=== PATIENT | female | born 1995 | race Caucasian/White ===

== ENCOUNTER → 2020-07-30 | Outpatient (CLI) | payer OTHER ==
[~2020-07-30] MED LIST: PRENTAB53 PO; VENTAER INH
[2020-07-30 11:10] LABS: HEMATOCRIT 39.1 % (36.0-47.0); HEMOGLOBIN 13.4 g/dl (12.0-15.5); MEAN CORPUSCULAR HEMOGLOBIN 30.5 pg (27.0-33.0); MEAN CORPUSCULAR HGB CONC 34.3 g/dl (32.0-36.5); MEAN CORPUSCULAR VOLUME 89.1 fl (80.0-96.0); PLATELET COUNT, AUTOMATED 256 10^3/uL (150-450); RED BLOOD COUNT 4.39 10^6/uL (4.00-5.40); WHITE BLOOD COUNT 5.6 10^3/uL (4.0-10.0)
[2020-07-30 11:29] LABS: ALBUMIN 3.7 GM/DL (3.2-5.2); ALT/SGPT 18 U/L (12-78); BILIRUBIN,TOTAL 0.6 MG/DL (0.2-1.0); BLOOD UREA NITROGEN 15 MG/DL (7-18); CALCIUM LEVEL 8.7 MG/DL (8.5-10.1); CARBON DIOXIDE LEVEL 26 MEQ/L (21-32); CHLORIDE LEVEL 106 MEQ/L (98-107); CREATININE FOR GFR 0.64 MG/DL (0.55-1.30); GLOMERULAR FILTRATION RATE > 60.0 (>60); GLUCOSE, FASTING 88 MG/DL (70-100); POTASSIUM SERUM 4.2 MEQ/L (3.5-5.1); SODIUM LEVEL 138 MEQ/L (136-145); TOTAL PROTEIN 6.8 GM/DL (6.4-8.2)
== END ==
LOC: M WUC 08:18
PROVIDERS: ATTEND Student in an Organized Health Care Education/Training Program
DX: Z32.01 Encounter for pregnancy test, result positive (principal)
CPT/HCPCS: 36415; 80053; 84443; 85027; G0463

== ENCOUNTER → 2020-08-02 | Outpatient (CLI) | payer OTHER, SELFPAY | LOC: M LABSMTC 12:11 | PROVIDERS: ATTEND Pediatrics | DX: Z20.828 Contact with and (suspected) exposure to other viral communicable diseases (principal) ==

== ENCOUNTER 2020-08-03 14:57 | Emergency (ER) | payer OTHER, SELFPAY ==
[~2020-08-03] VITALS: Ht 160 cm; Wt 71.5 kg
[2020-08-03] MEDS ORDERED: PRENTAB53 PO (15:07)
[2020-08-03] MEDS ORDERED: diphenhydrAMINE 50MG/ML VIAL (J1200) IV STA (15:38)
[2020-08-03] MEDS ORDERED: METOCLOPRAMIDE INJ 10MG/2ML VIAL (J2765 PER 1) IV ONE (15:45)
[2020-08-03] MEDS ORDERED: NS 1,000 ML IV ONE (15:45)
[2020-08-03] MEDS ORDERED: ACETAMINOPHEN 500 MG TAB PO ONE (15:45)
[2020-08-03 16:10] LABS: BASO % 0.2 % (0.0-1.0); EOS # 0.1 10^3/uL (0.0-0.5); EOS % 1.1 % (0.0-3.0); HEMATOCRIT 40.1 % (36.0-47.0); HEMOGLOBIN 13.5 g/dl (12.0-15.5); LYMPH % 31.4 % (24.0-44.0); MEAN CORPUSCULAR HEMOGLOBIN 29.7 pg (27.0-33.0); MEAN CORPUSCULAR HGB CONC 33.7 g/dl (32.0-36.5); MEAN CORPUSCULAR VOLUME 88.3 fl (80.0-96.0); MONO # 0.6 10^3/uL (0.0-0.8); MONO % 8.7 % (0.0-5.0); NEUTROPHILS # 3.7 10^3/uL (1.5-8.5); NEUTROPHILS % 58.3 % (36.0-66.0); PLATELET COUNT, AUTOMATED 260 10^3/uL (150-450); RED BLOOD COUNT 4.54 10^6/uL (4.00-5.40); WHITE BLOOD COUNT 6.4 10^3/uL (4.0-10.0)
[2020-08-03 16:23] LABS: INR 0.92; PROTHROMBIN TIME 12.5 SECONDS (12.5-14.3)
[2020-08-03 16:26] LABS: D-DIMER QUANT 346.85 ng/ml (<500)
[2020-08-03 16:48] LABS: ALBUMIN 3.7 GM/DL (3.2-5.2); ALT/SGPT 29 U/L (12-78); BILIRUBIN,DIRECT 0.1 MG/DL (0.0-0.2); BILIRUBIN,TOTAL 0.3 MG/DL (0.2-1.0); BLOOD UREA NITROGEN 10 MG/DL (7-18); CALCIUM LEVEL 8.8 MG/DL (8.5-10.1); CARBON DIOXIDE LEVEL 27 MEQ/L (21-32); CHLORIDE LEVEL 106 MEQ/L (98-107); CK-MB VALUE MASS < 1.0 NG/ML (<3.6); CPK CREATINE PHOSPHOKINASE 80 U/L (26-192); CREATININE FOR GFR 0.69 MG/DL (0.55-1.30); GLOMERULAR FILTRATION RATE > 60.0 (>60); GLUCOSE, FASTING 85 MG/DL (70-100); HCG, SERUM QUANTITATIVE 9624 MIU/ML; MB/CK RELATIVE INDEX 1.25 (< OR =4); NT-PRO BNP 7 PG/ML (<125); SODIUM LEVEL 137 MEQ/L (136-145); THYROID STIMULATING HORMONE 0.852 uIU/ML (0.358-3.740); THYROXINE (T4) 8.8 UG/DL (4.5-12.0); TOTAL PROTEIN 7.2 GM/DL (6.4-8.2); TROPONIN I < 0.02 NG/ML (< 0.10)
[2020-08-03] MEDS ORDERED: VENTAER INH (17:38)
[2020-08-03 17:52] VITALS: BP 122/69
== END 2020-08-03 17:55 | disposition home or self-care (01) ==
LOC: M ED 14:57
DX: O99.511 Diseases of the respiratory system complicating pregnancy, first trimester (principal); Z3A.01 Less than 8 weeks gestation of pregnancy; Z79.899 Other long term (current) drug therapy
CPT/HCPCS: 80048; 80076; 82550; 82553; 83880; 84436; 84443; 84484; 84702; 85025; 85379; 85610; 96374; 96375; 99284; J1200; J2765

== ENCOUNTER → 2020-08-30 | Outpatient (REF) | payer OTHER ==
[2020-08-30 18:46] LABS: HEMATOCRIT 39.9 % (36.0-47.0); HEMOGLOBIN 13.6 g/dl (12.0-15.5); MEAN CORPUSCULAR HEMOGLOBIN 30.6 pg (27.0-33.0); MEAN CORPUSCULAR HGB CONC 34.1 g/dl (32.0-36.5); MEAN CORPUSCULAR VOLUME 89.7 fl (80.0-96.0); PLATELET COUNT, AUTOMATED 267 10^3/uL (150-450); RED BLOOD COUNT 4.45 10^6/uL (4.00-5.40); WHITE BLOOD COUNT 7.2 10^3/uL (4.0-10.0)
[2020-08-30 19:35] LABS: HEPATITIS C VIRUS ABY INDEX < 0.0 INDEX (<0.8); HIV 1&2 SCREEN CENTAUR NEGATIVE (NEGATIVE)
[2020-08-30 20:18] LABS: CHLAMYDIA DNA AMPLIFICATION NEGATIVE (NEGATIVE); GC DNA AMPLIFICATION NEGATIVE (NEGATIVE)
== END ==
LOC: M PLALAB 15:17
PROVIDERS: ATTEND Advanced Practice Midwife
DX: Z34.81 Encounter for supervision of other normal pregnancy, first trimester (principal)
CPT/HCPCS: 36415; 85027; 86762; 86780; 86803; 86850; 86900; 86901; 87086; 87340; 87389; 87491; 87591; G0463

== ENCOUNTER → 2020-09-04 | Outpatient (CLI) | payer OTHER | LOC: M LAB 11:25 | PROVIDERS: ATTEND Advanced Practice Midwife | DX: Z34.81 Encounter for supervision of other normal pregnancy, first trimester (principal) ==

== ENCOUNTER 2020-09-07 15:27 | Emergency (ER) | payer OTHER ==
[~2020-09-07] VITALS: Ht 160 cm; Wt 75.8 kg
[2020-09-07 16:49] LABS: BASO % 0.2 % (0.0-1.0); EOS # 0.1 10^3/uL (0.0-0.5); EOS % 1.3 % (0.0-3.0); HEMATOCRIT 36.2 % (36.0-47.0); HEMOGLOBIN 12.8 g/dl (12.0-15.5); LYMPH # 1.8 10^3/uL (1.5-5.0); LYMPH % 29.9 % (24.0-44.0); MEAN CORPUSCULAR HEMOGLOBIN 30.5 pg (27.0-33.0); MEAN CORPUSCULAR HGB CONC 35.4 g/dl (32.0-36.5); MEAN CORPUSCULAR VOLUME 86.4 fl (80.0-96.0); MONO # 0.5 10^3/uL (0.0-0.8); MONO % 7.4 % (0.0-5.0); NEUTROPHILS # 3.7 10^3/uL (1.5-8.5); NEUTROPHILS % 60.7 % (36.0-66.0); PLATELET COUNT, AUTOMATED 248 10^3/uL (150-450); RED BLOOD COUNT 4.19 10^6/uL (4.00-5.40); WHITE BLOOD COUNT 6.1 10^3/uL (4.0-10.0)
[2020-09-07 17:03] LABS: INR 0.89; PROTHROMBIN TIME 12.2 SECONDS (12.5-14.3)
--- NOTE | 2020-09-07 17:03 | REP ---
INDICATION: cramping. COMPARISON: No comparison study. TECHNIQUE: Transabdominal scanning is performed. FINDINGS: Transabdominal scanning demonstrates a single living intrauterine gestation in a free-floating lie. The crown-rump length of the embryonic pole is 36 mm. This corresponds with a gestational age estimate of 10 weeks 3 days. heart rate is recorded at 161 beats per minute. No extra uterine abnormality is observed. IMPRESSION: Viable single intrauterine gestation at 10 weeks 3 days by crown-rump length. DAMIAN by sonography April 02, 2021. No complication is identified. <Electronically signed by Gabriele Perez > 09/07/20 [id number]
[2020-09-07 17:04] LABS: PARTIAL THROMBOPLASTIN TIME 31.7 SECONDS (24.2-38.5)
[2020-09-07 17:07] LABS: D-DIMER QUANT 495.64 ng/ml (<500)
[2020-09-07 17:38] LABS: ALBUMIN 3.4 GM/DL (3.2-5.2); ALT/SGPT 16 U/L (12-78); BILIRUBIN,DIRECT 0.1 MG/DL (0.0-0.2); BILIRUBIN,TOTAL 0.3 MG/DL (0.2-1.0); CK-MB VALUE MASS < 1.0 NG/ML (<3.6); CPK CREATINE PHOSPHOKINASE 70 U/L (26-192); FREE T4 0.98 NG/DL (0.76-1.46); HCG, SERUM QUANTITATIVE 62807 MIU/ML; LIPASE 93 U/L (73-393); MB/CK RELATIVE INDEX 1.43 (< OR =4); THYROID STIMULATING HORMONE 0.578 uIU/ML (0.358-3.740); TOTAL PROTEIN 6.8 GM/DL (6.4-8.2); TROPONIN I < 0.02 NG/ML (< 0.10)
[2020-09-07 18:08] VITALS: BP 123/61
--- NOTE | 2020-09-08 14:43 | ECGEPIP ---
[facility] - ED Test Date: 2020-09-07 Pat Name: FABRIZIO JOHNSON Department: Room: - Gender: Female Distribution Spec: kanu : 1995 Requested By: ARACELI KAMINSKI PA-C Order Number: [id number] Reading MD: Alyse Delcid Measurements Intervals [place] Rate: 74 P: 27 IL: 126 QRS: 53 QRSD: 89 T: 16 QT: 364 QTc: 404 Interpretive Statements SINUS RHYTHM WITH SINUS ARRHYTHMIA No prior Electronically Signed on 09-08-2020 14:43:27 EST by Alyse Delcid
== END 2020-09-07 18:15 | disposition home or self-care (01) ==
LOC: M ED 15:27
DX: O99.411 Diseases of the circulatory system complicating pregnancy, first trimester (principal); O26.891 Other specified pregnancy related conditions, first trimester; Z3A.10 10 weeks gestation of pregnancy; Z79.899 Other long term (current) drug therapy

== ENCOUNTER → 2020-10-07 | Outpatient (REF) | LOC: M LABSMTC 10:53 | PROVIDERS: ATTEND Pediatrics | DX: Z11.52 Encounter for screening for COVID-19 (principal) ==

== ENCOUNTER → 2020-10-15 | Outpatient (REF) | LOC: M LABSMTC 13:31 | PROVIDERS: ATTEND Pediatrics | DX: Z11.52 Encounter for screening for COVID-19 (principal) ==

== ENCOUNTER 2020-11-16 12:24 | Emergency (ER) | payer OTHER ==
[~2020-11-16] VITALS: Ht 160 cm; Wt 83.4 kg
[2020-11-16] MEDS ORDERED: ACETAMINOPHEN TAB 650MG DOSE (2X325MG) PO ONE (12:55)
[2020-11-16 13:18] LABS: BASO % 0.1 % (0.0-1.0); EOS # 0.1 10^3/uL (0.0-0.5); EOS % 0.9 % (0.0-3.0); HEMATOCRIT 35.1 % (36.0-47.0); HEMOGLOBIN 12.1 g/dl (12.0-15.5); LYMPH # 1.6 10^3/uL (1.5-5.0); LYMPH % 20.6 % (24.0-44.0); MEAN CORPUSCULAR HEMOGLOBIN 30.9 pg (27.0-33.0); MEAN CORPUSCULAR HGB CONC 34.5 g/dl (32.0-36.5); MEAN CORPUSCULAR VOLUME 89.5 fl (80.0-96.0); MONO # 0.7 10^3/uL (0.0-0.8); MONO % 8.7 % (2.0-8.0); NEUTROPHILS # 5.2 10^3/uL (1.5-8.5); NEUTROPHILS % 68.5 % (36.0-66.0); PLATELET COUNT, AUTOMATED 247 10^3/uL (150-450); RED BLOOD COUNT 3.92 10^6/uL (4.00-5.40); WHITE BLOOD COUNT 7.6 10^3/uL (4.0-10.0)
[2020-11-16 13:49] LABS: MAGNESIUM LEVEL 2.1 MG/DL (1.8-2.4); THYROID STIMULATING HORMONE 1.03 uIU/ML (0.358-3.740); THYROXINE (T4) 14.5 UG/DL (4.5-12.0)
[2020-11-16 14:14] LABS: APPEARANCE, URINE CLEAR (CLEAR); BACTERIA, URINE AUTO 2+ (NEGATIVE); BILIRUBIN, URINE AUTO NEGATIVE (NEGATIVE); BLOOD, URINE BLOOD NEGATIVE (NEGATIVE); COLOR, URINE STRAW (YELLOW); GLUCOSE, URINE (UA) AUTO NEGATIVE (NEGATIVE); KETONE, URINE AUTO NEGATIVE (NEGATIVE); LEUKOCYTE ESTERASE, URINE AUTO NEGATIVE (NEGATIVE); NITRITE, URINE AUTO NEGATIVE (NEGATIVE); PROTEIN, URINE AUTO NEGATIVE (NEGATIVE); RBC, URINE AUTO 1 /HPF (0-3); SPECIFIC GRAVITY URINE AUTO 1.004 (1.002-1.035); SQUAMOUS EPITHELIAL CELL UR AU 1 /HPF (0-6); UROBILINOGEN, URINE AUTO 0.2 mg/dL (0.0-2.0); WBC, URINE AUTO 2 /HPF (0-3)
--- NOTE | 2020-11-16 14:15 | REP ---
INDICATION: ?previa -low lying placenta - need cervical length too pleas. COMPARISON: 09/07/2020. TECHNIQUE: Real-time sonographic evaluation of the gravid uterus performed. Transabdominal and endovaginal technique is utilized. FINDINGS: Estimated gestational age is20 weeks 3 days, EDC 04/02/2021. Today's measurements indicate appropriate growth. Presentation: Cephalic Placenta anterior, grade 1, without evidence of placenta previa. heart rate is recorded at 146 beats per minute. Amniotic fluid is subjectively normal. Closed cervical length is measured at 3.9 cm. Biometry chart: BPD: 52 mm, 21 weeks 5 days, with 85th percentile. HC: 189 mm, 21 weeks 2 days, 75th percentile AC: 164 mm, 21 weeks 3 days, 72nd percentile Femur length: 35 mm, 521 weeks 1 days, 69th percentile HC to AC ratio: 1.16, normal range 1.06-1.24. Estimated weight: 415g, 90th percentile. anatomy: Cranium: Grossly normal Lateral Ventricles/Choroid Plexus: Grossly normal Posterior Fossa/Cerebellum: Grossly normal Nose/lips/profile: Grossly normal Four chamber heart: Not well seen due to position. Right ventricular outflow tract: Not well seen due to position. Left ventricular outflow tract: Not well seen due to position. Left-sided stomach: Grossly normal Kidneys: Grossly normal Bladder: Grossly normal Cord Insertion: Grossly normal 3 vessel cord: Grossly normal Spine: Not well seen due to position. IMPRESSION: Viable single intrauterine gestation as above. <Electronically signed by Jorden Montenegro > 11/16/20 [id number]
[2020-11-16] MEDS ORDERED: NITR1CAP11 PO (14:47)
[2020-11-16 15:03] VITALS: BP 142/67
--- NOTE | 2020-11-16 18:00 | ECGEPIP ---
[facility] - ED Test Date: 2020-11-16 Pat Name: FABRIZIO JOHNSON Department: Room: - Gender: Female Telephone Lineman: Luda MEREDITH : 1995 Requested By: Alyse Delcid Order Number: [id number] Reading MD: Alyse Delcid Measurements Intervals Tina Rate: 89 P: 26 NV: 128 QRS: 34 QRSD: 76 T: 15 QT: 344 QTc: 418 Interpretive Statements Normal sinus rhythm increased rate 09/07/20 Electronically Signed on 11-16-2020 18:00:27 EDT by Alyse Delcid
== END 2020-11-16 15:05 | disposition home or self-care (01) ==
LOC: M ED 12:24
DX: O99.891 Other specified diseases and conditions complicating pregnancy (principal); R00.2 Palpitations; O23.92 Unspecified genitourinary tract infection in pregnancy, second trimester; Z3A.21 21 weeks gestation of pregnancy

== ENCOUNTER → 2020-11-23 | Outpatient (CLI) | payer OTHER ==
[~2020-11-23] MED LIST changes: +CETI10CA2 PO; +NITR1CAP11 PO
--- NOTE | 2020-11-25 13:15 | REP ---
INDICATION: ANATOMY,PLACENTAL LOCATION,VAG BLEEDING. COMPARISON: 11/16/2020. TECHNIQUE: Real-time sonographic evaluation of the gravid uterus performed. Study is submitted to me for interpretation 11/25/2020 for reasons unknown to me. FINDINGS: Estimated gestational age is21 weeks 3 days, EDC 04/02/2021. Today's measurements indicate appropriate growth. Presentation: Cephalic Placenta anterior, grade 1, without evidence of placenta previa. heart rate is recorded at 152 beats per minute. Amniotic fluid is subjectively normal. Closed cervical length is measured at 3.1 cm. Biometry chart: BPD: 54 mm, 22 weeks 3 days, 78th percentile. HC: 199 mm, 22 weeks 0 days, 69th percentile AC: 183 mm, 23 weeks 1 days, 87th percentile Femur length: 39 mm, 22 weeks 2 days, 74th percentile HC to AC ratio: 1.09, normal range 1.05-1.24. Estimated weight: 525g, > 97th percentile. anatomy: Cranium: Grossly normal Lateral Ventricles/Choroid Plexus: There is no hydrocephalus, possible subcentimeter cystic area in the right choroid plexus. Posterior Fossa/Cerebellum: Grossly normal Nose/lips/profile: Grossly normal Four chamber heart: Grossly normal Right ventricular outflow tract: Grossly normal Left ventricular outflow tract: Grossly normal Left-sided stomach: Grossly normal Kidneys: Grossly normal Bladder: Grossly normal Cord Insertion: Grossly normal 3 vessel cord: Grossly normal Spine: Grossly normal IMPRESSION: Viable single intrauterine gestation as above. Possible subcentimeter cystic area in the right choroid plexus. <Electronically signed by Jorden Montenegro > 11/25/20 1311
== END ==
LOC: M WHC 12:42
PROVIDERS: ATTEND Advanced Practice Midwife
DX: O26.852 Spotting complicating pregnancy, second trimester (principal); Z3A.21 21 weeks gestation of pregnancy

== ENCOUNTER 2020-11-29 09:35 | Outpatient (CLI) | payer OTHER ==
[~2020-11-29] VITALS: Ht 160 cm; Wt 85.1 kg
[~2020-11-29 09:35] MED LIST changes: +ANUSOL HC CREAM 30GM TOP SCH; -CETI10CA2 PO; +HYDROCORTISONE 1% CREAM 30 GM TOP SCH
[2020-11-29 10:25] VITALS: BP 110/60
[2020-11-29] MEDS ORDERED: diphenhydrAMINE 50MG/ML VIAL (J1200) IV ONE (10:55)
--- NOTE | 2020-11-29 10:57 | IPNPDOC ---
Text Note Date of Service The patient was seen on 11/29/20. NOTE Subjective: Rainer is a 25-year-old female who is a at 22.2 weeks gestation with an DAMIAN of 04/02/21. Her has been uncomplicated. She presents to L&D with complaints of a rash on her arms over the last 3 weeks that started to itch over the weekend more than it has in the past. She took Benadryl 50 mg yesterday without relief. She reports active movement, denies co ntractions, denies vaginal bleeding or leaking of fluid. MHx: history of abnormal pap smear, fibroids SHx: wisdom teeth and attempt to remove fibroids (unsuccessful) FHx: mother with endometriosis and fibroids, uncle colon cancer, maternal aunt with lupus and another aunt with a blood clot that passed way at 34 from it Social Hx: US[employer] Hx: induced 2013 Objective: VS and labs: see below FHR: 150 [place]: no contractions General: No apparent distress. Respiratory: Regular rate and rhythm without use of accessory muscles Abdomen: gravid with fundus slightly above umbilicus. Skin: Few, spread papules on forearms and top of hands. Some papules are slightly raised and erythremic but all are small and round (less than 0.5 cm), excoriation noted over a few papules. No crusting or scaling noted. No noted fashion of distribution. Assessment: IUP at 22.2 weeks gestation, pruritic papules Plan: Saline lock started. Labs obtained. IV Benadryl ordered and Zyrtec PO ordered. Reviewed lab findings with patient. Reviewed treatment plan. Script sent for Zyrtec PO daily until itching and papules are cleared up. PO Benadryl 50 mg BID if needed for itching. Topical hydrocortisone also given. Patient has an appointment this Sunday in our office. Discharged to home with precautions. VS,Fishbone, I+O VS, Fishbone, I+O Vital Signs Date Time Temp Pulse Resp B/P (MAP) Pulse Ox O2 Delivery O2 Flow Rate FiO2 11/29/20 10:25 98.1 95 18 110/60 (77) Room Air Item Value Date Time White Blood Count 8.4 10^3/uL 11/29/20 1054 Red Blood Count 3.82 10^6/uL L 11/29/20 1054 Hemoglobin 11.8 g/dl L 11/29/20 1054 Hematocrit 34.7 % L 11/29/20 1054 Mean Corpuscular Volume 90.8 fl 11/29/20 1054 Mean Corpuscular Hemoglobin 30.9 pg 11/29/20 1054 Mean Corpuscular Hemoglobin Concent 34.0 g/dl 11/29/20 1054 Red Cell Distribution Width 12.7 % 11/29/20 1054 Platelet Count 245 10^3/uL 11/29/20 1054 Immature Granulocyte % (Auto) 1.0 % 11/29/20 1054 Neutrophils (%) (Auto) 73.4 % H 11/29/20 1054 Lymphocytes (%) (Auto) 18.2 % L 11/29/20 1054 Monocytes (%) (Auto) 6.5 % 11/29/20 1054 Eosinophils (%) (Auto) 0.7 % 11/29/20 1054 Basophils (%) (Auto) 0.2 % 11/29/20 1054 Neutrophils # (Auto) 6.2 10^3/uL 11/29/20 1054 Lymphocytes # (Auto) 1.5 10^3/uL 11/29/20 1054 Monocytes # (Auto) 0.6 10^3/uL 11/29/20 1054 Eosinophils # (Auto) 0.1 10^3/uL 11/29/20 1054 Basophils # (Auto) 0.0 10^3/uL 11/29/20 1054 Nucleated Red Blood Cells % (auto) 0.0 % 11/29/20 1054 Item Value Date Time Erythrocyte Sedimentation Rate 52 mm/hr H 11/29/20 1054 Item Value Date Time Sodium Level 139 MEQ/L 11/29/20 1054 Potassium Level 3.8 MEQ/L 11/29/20 1054 Chloride Level 109 MEQ/L H 11/29/20 1054 Carbon Dioxide Level 20 MEQ/L L 11/29/20 1054 Anion Gap 10 MEQ/L 11/29/20 1054 Blood Urea Nitrogen 9 MG/DL 11/29/20 1054 Creatinine 0.48 MG/DL L 11/29/20 1054 Glomerular Filtration Rate > 60.0 11/29/20 1054 Fasting Glucose 97 MG/DL 11/29/20 1054 Calcium Level 8.3 MG/DL L 11/29/20 1054 Total Bilirubin 0.3 MG/DL 11/29/20 1054 Aspartate Amino Transf (AST/SGOT) 26 U/L 11/29/20 1054 Alanine Aminotransferase (ALT/SGPT) 24 U/L 11/29/20 1054 Alkaline Phosphatase 70 U/L 11/29/20 1054 Total Protein 6.2 GM/DL L 11/29/20 1054 Albumin 2.7 GM/DL L 11/29/20 1054 Albumin/Globulin Ratio 0.8 L 11/29/20 1054 ELAINE HERNÁNDEZ CNM Nov 29, 2020 10:57
[2020-11-29 11:14] LABS: APPEARANCE, URINE CLEAR (CLEAR); BACTERIA, URINE AUTO 1+ (NEGATIVE); BILIRUBIN, URINE AUTO NEGATIVE (NEGATIVE); BLOOD, URINE BLOOD NEGATIVE (NEGATIVE); COLOR, URINE YELLOW (YELLOW); GLUCOSE, URINE (UA) AUTO NEGATIVE (NEGATIVE); KETONE, URINE AUTO NEGATIVE (NEGATIVE); LEUKOCYTE ESTERASE, URINE AUTO NEGATIVE (NEGATIVE); MUCUS, URINE SMALL (NEGATIVE); NITRITE, URINE AUTO NEGATIVE (NEGATIVE); PROTEIN, URINE AUTO NEGATIVE (NEGATIVE); RBC, URINE AUTO 2 /HPF (0-3); SPECIFIC GRAVITY URINE AUTO 1.018 (1.002-1.035); SQUAMOUS EPITHELIAL CELL UR AU 0 /HPF (0-6); UROBILINOGEN, URINE AUTO 0.2 mg/dL (0.0-2.0); WBC, URINE AUTO 2 /HPF (0-3)
[2020-11-29 11:57] LABS: ALBUMIN 2.7 GM/DL (3.2-5.2); ALT/SGPT 24 U/L (12-78); BILIRUBIN,TOTAL 0.3 MG/DL (0.2-1.0); BLOOD UREA NITROGEN 9 MG/DL (7-18); CALCIUM LEVEL 8.3 MG/DL (8.5-10.1); CARBON DIOXIDE LEVEL 20 MEQ/L (21-32); CHLORIDE LEVEL 109 MEQ/L (98-107); CREATININE FOR GFR 0.48 MG/DL (0.55-1.30); GLOMERULAR FILTRATION RATE > 60.0 (>60); GLUCOSE, FASTING 97 MG/DL (70-100); POTASSIUM SERUM 3.8 MEQ/L (3.5-5.1); SODIUM LEVEL 139 MEQ/L (136-145); TOTAL PROTEIN 6.2 GM/DL (6.4-8.2)
[2020-11-29] MEDS ORDERED: CETIRIZINE (ZyrTEC) 10 MG TAB PO ONE (12:00)
[2020-11-29] MEDS ORDERED: CETI10CA2 PO (13:20)
[2020-11-29 13:27] LABS: BASO % 0.2 % (0.0-1.0); EOS # 0.1 10^3/uL (0.0-0.5); EOS % 0.7 % (0.0-3.0); HEMATOCRIT 34.7 % (36.0-47.0); HEMOGLOBIN 11.8 g/dl (12.0-15.5); LYMPH # 1.5 10^3/uL (1.5-5.0); LYMPH % 18.2 % (24.0-44.0); MEAN CORPUSCULAR HEMOGLOBIN 30.9 pg (27.0-33.0); MEAN CORPUSCULAR VOLUME 90.8 fl (80.0-96.0); MONO # 0.6 10^3/uL (0.0-0.8); MONO % 6.5 % (2.0-8.0); NEUTROPHILS # 6.2 10^3/uL (1.5-8.5); NEUTROPHILS % 73.4 % (36.0-66.0); PLATELET COUNT, AUTOMATED 245 10^3/uL (150-450); RED BLOOD COUNT 3.82 10^6/uL (4.00-5.40); WHITE BLOOD COUNT 8.4 10^3/uL (4.0-10.0)
== END 2020-11-29 14:15 | disposition home or self-care (01) ==
LOC: M LDO 09:35
PROVIDERS: ATTEND Advanced Practice Midwife
DX: O26.86 Pruritic urticarial papules and plaques of pregnancy (PUPPP) (principal); Z3A.22 22 weeks gestation of pregnancy
CPT/HCPCS: 80053; 81001; 85025; 85652; 87086; 96374; G0378; G0463; J1200

== ENCOUNTER 2021-01-02 18:50 | Outpatient (CLI) | payer OTHER ==
[~2021-01-02] VITALS: Ht 160 cm; Wt 88.4 kg
[~2021-01-02 18:50] MED LIST changes: -ANUSOL HC CREAM 30GM TOP SCH; +CETI10CA2 PO; -HYDROCORTISONE 1% CREAM 30 GM TOP SCH
[2021-01-02 19:07] VITALS: BP 122/59
[2021-01-02] MEDS ORDERED: ACET500P3 PO (19:22)
[2021-01-02 19:51] VITALS: BP 114/63
[2021-01-02 20:01] VITALS: BP 120/61
[2021-01-02 20:15] LABS: APPEARANCE, URINE CLEAR (CLEAR); BACTERIA, URINE AUTO 1+ (NEGATIVE); BILIRUBIN, URINE AUTO NEGATIVE (NEGATIVE); BLOOD, URINE BLOOD NEGATIVE (NEGATIVE); COLOR, URINE STRAW (YELLOW); GLUCOSE, URINE (UA) AUTO 1+ mg/dL (NEGATIVE); KETONE, URINE AUTO NEGATIVE (NEGATIVE); LEUKOCYTE ESTERASE, URINE AUTO NEGATIVE (NEGATIVE); NITRITE, URINE AUTO NEGATIVE (NEGATIVE); PROTEIN, URINE AUTO NEGATIVE (NEGATIVE); RBC, URINE AUTO 0 /HPF (0-3); SPECIFIC GRAVITY URINE AUTO 1.005 (1.002-1.035); SQUAMOUS EPITHELIAL CELL UR AU 0 /HPF (0-6); UROBILINOGEN, URINE AUTO 0.2 mg/dL (0.0-2.0); WBC, URINE AUTO 2 /HPF (0-3)
[2021-01-02 20:35] LABS: CREATININE,RANDOM URINE 30.9 MG/DL; TOTAL PROTEIN,RANDOM URINE 5.5 MG/DL (0.0-12.0)
[2021-01-02 20:49] LABS: HEMATOCRIT 34.8 % (36.0-47.0); HEMOGLOBIN 11.7 g/dl (12.0-15.5); MEAN CORPUSCULAR HEMOGLOBIN 30.4 pg (27.0-33.0); MEAN CORPUSCULAR HGB CONC 33.6 g/dl (32.0-36.5); MEAN CORPUSCULAR VOLUME 90.4 fl (80.0-96.0); PLATELET COUNT, AUTOMATED 249 10^3/uL (150-450); RED BLOOD COUNT 3.85 10^6/uL (4.00-5.40); WHITE BLOOD COUNT 9.6 10^3/uL (4.0-10.0)
[2021-01-02 21:13] LABS: ALT/SGPT 18 U/L (12-78); BILIRUBIN,TOTAL 0.2 MG/DL (0.2-1.0); CREATININE FOR GFR 0.48 MG/DL (0.55-1.30); GLOMERULAR FILTRATION RATE > 60.0 (>60); LDH LACTATE DEHYDROGENASE 165 U/L (84-246); URIC ACID 2.6 MG/DL (2.6-6.0)
--- NOTE | 2021-01-02 21:20 | IPNPDOC ---
Text Note Date of Service The patient was seen on 01/02/21. NOTE S: 25 yo female at 27 1/7 weeks gestation presents with right upper abdominal pain that radiates laterally. She also has GARCIA's. She is worried because her mother had preeclampsia. She has pain in the back of both legs. She is moving out of town soon. O: TI=439/70 NAD HEENT: NCAT Lungs: CTA CVS: RRR Abd: NT, gravid FHT: Cat. I toco: none ext: NT, tr edema A/P 25 yo at 27 1/7 weeks with no evidence of preeclampsia, costochondritis on right. Tylenol for GARCIA Discussed findings with patient could get diabetes test done prior to move VS,Ashlyn, I+O VS, Javye, I+O Vital Signs Date Time Temp Pulse Resp B/P (MAP) Pulse Ox O2 Delivery O2 Flow Rate FiO2 01/02/21 20:01 103 16 120/61 (80) 01/02/21 19:07 98.3 98 Room Air JACINDA RUBI MD January 02, 2021 20:35
== END 2021-01-02 21:25 | disposition home or self-care (01) ==
LOC: M LDO 18:50
PROVIDERS: ATTEND Specialist
DX: O26.892 Other specified pregnancy related conditions, second trimester (principal); Z3A.27 27 weeks gestation of pregnancy; R10.11 Right upper quadrant pain; M79.604 Pain in right leg; M79.605 Pain in left leg; M94.0 Chondrocostal junction syndrome [Tietze]; R51.9 Headache, unspecified
CPT/HCPCS: 36415; 81001; 82247; 82565; 82570; 83615; 84156; 84450; 84460; 84550; 85027; G0378; G0463

== ENCOUNTER 2021-01-14 01:59 | Outpatient (CLI) | payer OTHER, SELFPAY ==
[~2021-01-14] VITALS: Ht 160 cm; Wt 89.4 kg
[~2021-01-14 01:59] MED LIST changes: +ACET500P3 PO
[2021-01-14 02:09] VITALS: BP 133/62
--- NOTE | 2021-01-14 02:53 | IPNPDOC ---
Obstetrical Progress Note Date of Service Jan 14, 2021 Subjective 25-year-old G2, P0010 at 28+6 weeks gestation. She is having intermittent pelvic pressure and she also noticed bleeding on her underwear that was bright red. . Her pain is mainly located around her pubic bone. Denies any passage of blood clots. Denies large loss of fluid or uterine contractions. She reports regular, frequent movement. PMH: Fibroids. Hemorrhoids SH: [place] teeth. Diagnostic laparoscopy (small fibroids) Meds: vitamin NKDA Normotensive. Normal heart rate. Afebrile. Abdomen: Uterine fundus is nontender and size/fundal height appropriate with gestational age . Pelvic: Cervix is visually closed. No bleeding in the vaginal vault, normal- appearing white discharge, no foul odor. No bleeding upon contact with cervix SVE: Closed, long, high Rectal/anal: External hemorrhoids that are bleeding, clots overlying the hemorrhoids. Transvaginal ultrasound, limited: Cervical length 3.5-3.8 cm no dynamic changes or funneling noted EFM: Category 1/reactive for gestational age, moderate variability, no decelerations normal baseline [place]: No contraction pattern detected A/P: 25-year-old G2, P0010 at 28+6 weeks gestation. No evidence of uterine or vaginal bleeding, labor, rupture of membranes or cervical shortening. Reassuring maternal and status. Bleeding most likely coming from external hemorrhoids only. Patient offered reassurance and routine precautions were reviewed. She is to follow-up in the office as scheduled. DO SAMANTHA Churchill JONATHAN R. DO Jan 14, 2021 02:53
== END 2021-01-14 02:55 | disposition home or self-care (01) ==
LOC: M LDO 01:59
PROVIDERS: ATTEND Obstetrics & Gynecology
DX: O22.43 Hemorrhoids in pregnancy, third trimester (principal); Z3A.28 28 weeks gestation of pregnancy; O26.893 Other specified pregnancy related conditions, third trimester; R10.2 Pelvic and perineal pain
CPT/HCPCS: G0378; G0463